=== PATIENT | male | born 1965 | race African-American/Black ===

== ENCOUNTER 2018-07-13 10:44 | Emergency (ER) | payer MEDICAID, OTHER ==
[~2018-07-13] VITALS: Ht 185.4 cm; Wt 113.4 kg
[2018-07-13 11:36] LABS: Basophils # (auto) 0 uL; Basophils % (auto) 0.6 % (0.0-2.0); Eosinophils # (auto) 0 uL; Eosinophils % (auto) 0.9 % (0.0-7.0); Hematocrit 42.9 % (41.0-53.0); Hemoglobin 14.4 g/dL (13.5-17.5); Lymphocytes # (auto) 1.1 uL; Lymphocytes % (auto) 20.2 % (10.0-50.0); Mean Corpuscular Hemoglobin 29.4 pg (28.0-32.0); Mean Corpuscular Hgb Conc. 33.6 g/dL (32.0-36.0); Mean Corpuscular Volume 87.6 fL (80.0-100.0); Monocytes # (auto) 0.5 uL; Monocytes % (auto) 10.2 % (0.0-12.0); Neutrophils # (auto) 3.5 uL; Neutrophils % (auto) 68.1 % (37.0-80.0); Nucleated Red Blood Cells % 0.1 %; Platelet Count (auto) 103 10^3/uL (140-450); Red Cell Distribution Width 14.4 % (11.8-14.3); White Blood Cell 5.2 10^3/uL (4.4-10.8)
[2018-07-13 11:59] LABS: Calcium 8.5 mg/dL (8.5-10.1); Chloride 102 mmol/L (98-107); Potassium 3.9 mmol/L (3.5-5.1); Sodium 135 mmol/L (136-145)
[2018-07-13] MEDS: SODIUM CHLORIDE 0.9% 1,000 ML IV ONE (12:07)
[2018-07-13 12:08] LABS: Alanine Aminotransferase 226 U/L (16-61); Alkaline Phosphatase 224 U/L (45-117); Anion Gap 10 (5-15); Aspartate Aminotransferase 225 U/L (15-37); BUN/Creatinine Ratio 2.9; Bilirubin, Total 2.3 mg/dL (0.2-1.0); Blood Urea Nitrogen 3 mg/dL (7-18); Carbon Dioxide 23 mmol/L (21-32); GFR African American 97 mL/min; GFR Non-African American 80 mL/min; Glucose 117 mg/dL (74-106)
[2018-07-13 12:08] LABS: Urine WBC None Seen /hpf (0 - 3)
[2018-07-13 12:28] LABS: Urine Bacteria NONE SEEN /hpf (None Seen); Urine Blood Negative /uL (Negative); Urine Specific Gravity 1.002 (1.001-1.035)
[2018-07-13 13:24] LABS: Alcohol, Urine < 3.0 mg/dL (0-5); Amphetamine Screen, Urine NEGATIVE (NEGATIVE); Barbiturate Scree,Urine NEGATIVE (NEGATIVE); Benzodiazephine Screen, Urine NEGATIVE (NEGATIVE); Cannabinoid Screen, Urine NEGATIVE (NEGATIVE); Cocaine Screen, Urine NEGATIVE (NEGATIVE); Opiate Scree,Urine NEGATIVE (NEGATIVE); Phencyclidine Screen, Urine NEGATIVE (NEGATIVE)
[2018-07-13 15:16] VITALS: BP 146/88
== END 2018-07-13 15:24 | disposition home or self-care (01) ==
LOC: ER 10:44
DX: I10 Essential (primary) hypertension (principal); M62.82 Rhabdomyolysis; E44.1 Mild protein-calorie malnutrition; R74.8 Abnormal levels of other serum enzymes; Z68.33 Body mass index [BMI] 33.0-33.9, adult
CPT/HCPCS: 36415; 71046; 80053; 80307; 81001; 82550; 83735; 84443; 84484; 85025; 93005; 99284; J7030

== ENCOUNTER 2019-04-20 08:22 | Inpatient (IN) | payer MEDICAID ==
[~2019-04-20] VITALS: Ht 185.4 cm; Wt 110.1 kg
[2019-04-20 08:58] LABS: Urine Bacteria NONE SEEN /hpf (None Seen); Urine Blood Negative /uL (Negative); Urine Mucus FEW (None Seen); Urine WBC 5 /hpf (0 - 3)
[2019-04-20 09:14] LABS: Amphetamine Screen, Urine NEGATIVE (NEGATIVE); Barbiturate Scree,Urine NEGATIVE (NEGATIVE); Benzodiazephine Screen, Urine NEGATIVE (NEGATIVE); Cannabinoid Screen, Urine NEGATIVE (NEGATIVE); Cocaine Screen, Urine NEGATIVE (NEGATIVE); Opiate Scree,Urine NEGATIVE (NEGATIVE); Phencyclidine Screen, Urine NEGATIVE (NEGATIVE)
[2019-04-20 09:16] LABS: Basophils # (auto) 0.1 uL; Eosinophils # (auto) 0 uL; Hemoglobin 17.5 g/dL (13.5-17.5); Nucleated Red Blood Cells % 0.2 %
[2019-04-20 09:17] LABS: Eosinophils % (auto) 0.5 % (0.0-7.0); Hematocrit 51.4 % (41.0-53.0); Lymphocytes # (auto) 2.2 uL; Lymphocytes % (auto) 25.6 % (10.0-50.0); Mean Corpuscular Hemoglobin 28.8 pg (28.0-32.0); Mean Corpuscular Volume 84.7 fL (80.0-100.0); Monocytes # (auto) 0.4 uL; Monocytes % (auto) 4.6 % (0.0-12.0); Neutrophils # (auto) 5.8 uL; Neutrophils % (auto) 68.3 % (37.0-80.0); Platelet Count (auto) 127 10^3/uL (140-450); Red Blood Cells 6.07 10^6/uL (4.5-5.90); Red Cell Distribution Width 14.5 % (11.8-14.3); White Blood Cell 8.5 10^3/uL (4.4-10.8)
[2019-04-20 09:27] LABS: Albumin 3.3 g/dL (3.4-5.0); BUN/Creatinine Ratio 9.3; Calcium 8.3 mg/dL (8.5-10.1)
[2019-04-20 09:33] LABS: Bilirubin, Total 3.9 mg/dL (0.2-1.0); Total Protein 7.5 g/dL (6.4-8.2)
[2019-04-20] MEDS ORDERED: SODIUM CHLORIDE 0.9% 1,000 ML IV ONE ×2 (09:39→09:45)
[2019-04-20] MEDS ORDERED: chlordiazePOXIDE HCL 25 MG CAP PO ONE (09:45)
[2019-04-20] MEDS ORDERED: cefTRIAXone 1GM/50ML D5W 50 ML IV ONE ×2 (10:30→10:45)
[2019-04-20] MEDS ORDERED: NITROGLYCERIN 0.4 MG SL TAB SL PRN (10:45)
[2019-04-20] MEDS ORDERED: THIAMINE 100mg/ml INJ (200mg/2ml VIAL) IV ONE (10:45)
[2019-04-20] MEDS ORDERED: MORPHINE SULF INJ 2 MG/ML SYRINGE 1ML IV PRN (10:45)
[2019-04-20] MEDS ORDERED: chlordiazePOXIDE HCL 25 MG CAP PO PRN (10:45)
[2019-04-20 11:10] LABS: Amylase 179 U/L (25-115); Lipase 351 U/L (73-393)
[2019-04-20] MEDS: PROMETHAZINE HCL 25 MG/ML 1ML IV PRN (11:13)
[2019-04-20] MEDS: FAMOTIDINE (10MG/ML) 2ML VL IV SCH ×2 (11:13→22:26)
[2019-04-20] MEDS: SODIUM CHLORIDE 0.9% 1,000 ML IV SCH ×2 (11:14→17:16)
[2019-04-20] MEDS: MORPHINE SULFATE 4 MG/ML SYR/VIAL IV PRN ×3 (11:14→22:28)
--- NOTE | 2019-04-20 11:45 | NUR ---
Telemetry admit from ER NIK CULLEN admitted to Telemetry unit after SBAR received. Patient oriented to SAMANTHA BUCIO RN primary RN, unit Central, room 223, bed B, and unit policies regarding patient care and visiting hours. Patient now on continuous telemetry monitoring, tele box # and telemetry reading on arrival to unit is sinus rhythm. Patient weighed by bedscale and encouraged to call if they need something. All questions and concerns addressed, patient verbalized understanding.
[2019-04-20] MEDS: chlordiazePOXIDE HCL 25 MG CAP PO SCH ×2 (12:00→17:54)
[2019-04-20] MEDS: metroNIDAZOLE 500MG/100ML 100 ML IV SCH ×2 (14:00→22:26)
[2019-04-20 15:50] VITALS: BP 148/85
[2019-04-20 16:25] VITALS: BP 136/88
--- NOTE | 2019-04-20 20:10 | NUR ---
open note assumed care of pt. upon entering room pt awake, alert and oriented x4. pt on room air no distress noted or expressed. pt updated on plan of care, no questions at this time. pt bed locked, low and 2x rails up. call light in reach, this nurse will round q1hr and prn.
[2019-04-20 22:02] VITALS: BP 157/88
[2019-04-21] MEDS: SODIUM CHLORIDE 0.9% 1,000 ML IV SCH ×3 (00:02→12:00)
[2019-04-21] MEDS: MORPHINE SULFATE 4 MG/ML SYR/VIAL IV PRN ×4 (03:30→21:00)
[2019-04-21 04:46] VITALS: BP 165/93
[2019-04-21] MEDS: metroNIDAZOLE 500MG/100ML 100 ML IV SCH (06:17)
[2019-04-21] MEDS: chlordiazePOXIDE HCL 25 MG CAP PO SCH ×4 (06:18→18:22)
[2019-04-21 06:23] LABS: Basophils # (auto) 0 uL; Basophils % (auto) 0.6 % (0.0-2.0); Eosinophils # (auto) 0 uL; Eosinophils % (auto) 0.9 % (0.0-7.0); Hematocrit 41.9 % (41.0-53.0); Hemoglobin 14.6 g/dL (13.5-17.5); Lymphocytes # (auto) 1.1 uL; Lymphocytes % (auto) 20.5 % (10.0-50.0); Mean Corpuscular Hemoglobin 29.3 pg (28.0-32.0); Mean Corpuscular Hgb Conc. 34.7 g/dL (32.0-36.0); Mean Corpuscular Volume 84.6 fL (80.0-100.0); Monocytes # (auto) 0.4 uL; Monocytes % (auto) 7.4 % (0.0-12.0); Neutrophils # (auto) 3.7 uL; Neutrophils % (auto) 70.6 % (37.0-80.0); Nucleated Red Blood Cells % 0.1 %; Platelet Count (auto) 74 10^3/uL (140-450); Red Blood Cells 4.96 10^6/uL (4.5-5.90); Red Cell Distribution Width 14.3 % (11.8-14.3); White Blood Cell 5.2 10^3/uL (4.4-10.8)
[2019-04-21 06:47] LABS: Potassium 4.1 mmol/L (3.5-5.1)
[2019-04-21 06:52] LABS: Amylase 146 U/L (25-115); Lipase 232 U/L (73-393)
[2019-04-21 06:57] LABS: Albumin 2.6 g/dL (3.4-5.0); BUN/Creatinine Ratio 7.8; Bilirubin, Total 3.5 mg/dL (0.2-1.0); Calcium 7.4 mg/dL (8.5-10.1)
--- NOTE | 2019-04-21 08:03 | NUR ---
Paged Dr Poole regarding a blood pressure of 173/102. Waiting for orders.
--- NOTE | 2019-04-21 08:20 | NUR ---
Opening Shift Note Received report on the patient. Awake lying in bed. Discussed plan of care with the patient. Patient shows no signs of distress at this time. Bed in lowest position, side rails up x2, and call light is within reach. Will continue to monitor.
[2019-04-21 09:00] VITALS: BP 173/102
[2019-04-21] MEDS ORDERED: cefTRIAXone 1GM/50ML D5W 50 ML IV SCH (09:00)
[2019-04-21] MEDS: PROMETHAZINE HCL 25 MG/ML 1ML IV PRN (09:29)
[2019-04-21] MEDS ORDERED: THIAMINE 100mg/ml INJ (200mg/2ml VIAL) IV SCH (10:00)
[2019-04-21] MEDS: FAMOTIDINE (10MG/ML) 2ML VL IV SCH ×2 (10:27→21:35)
[2019-04-21] MEDS ORDERED: METOPROLOL TARTRATE 25 MG TAB PO ONE (12:00)
[2019-04-21] MEDS ORDERED: cloNIDine HCL 0.1 MG TAB PO PRN (12:15)
[2019-04-21] MEDS: FOLIC ACID 1 MG, MULTIPLE VITAMIN 10 ML, MAGNESIUM SULF SDV 50% 8 MEQ, THIAMINE INJ 100... INJ SCH ×5 (15:47)
--- NOTE | 2019-04-21 16:30 | NUR ---
IV removal IV DC'd with clean sterile technique, catheter fully intact. Pressure dressing applied to site. Patient tolerated well. NOTE:
--- NOTE | 2019-04-21 17:09 | NUR ---
IV insertion IV access obtained, via clean sterile technique by inserting 22 gauge catheter at the right forearm after 2 attempt(s). IV secured properly. No trauma to site. Patient tolerated well. NOTE: []
[2019-04-21 17:20] VITALS: BP 155/86
[2019-04-21] MEDS: METOPROLOL TARTRATE 25 MG TAB PO SCH (21:30)
[2019-04-21 21:44] VITALS: BP 156/87
[2019-04-21 22:15] LABS: Hepatitis B Surface Antigen Negative (Negative)
[2019-04-21 22:27] LABS: Hepatitis C Antibody Negative (Negative)
[2019-04-21 22:32] LABS: Hepatitis B Core IgM Negative
[2019-04-21 22:33] LABS: Hepatitis A Ab IgM Negative
[2019-04-22] MEDS: chlordiazePOXIDE HCL 25 MG CAP PO SCH ×3 (00:29→12:00)
[2019-04-22] MEDS: SODIUM CHLORIDE 0.9% 1,000 ML IV SCH (01:20)
[2019-04-22 05:14] VITALS: BP 151/93
[2019-04-22 07:41] LABS: Basophils # (auto) 0 uL; Basophils % (auto) 0.8 % (0.0-2.0); Eosinophils # (auto) 0.2 uL; Eosinophils % (auto) 4.7 % (0.0-7.0); Hematocrit 41.4 % (41.0-53.0); Hemoglobin 14.3 g/dL (13.5-17.5); Lymphocytes # (auto) 1.4 uL; Lymphocytes % (auto) 33.2 % (10.0-50.0); Mean Corpuscular Hemoglobin 29.4 pg (28.0-32.0); Mean Corpuscular Hgb Conc. 34.5 g/dL (32.0-36.0); Mean Corpuscular Volume 85.2 fL (80.0-100.0); Monocytes # (auto) 0.4 uL; Monocytes % (auto) 9.1 % (0.0-12.0); Neutrophils # (auto) 2.2 uL; Neutrophils % (auto) 52.2 % (37.0-80.0); Nucleated Red Blood Cells % 0.2 %; Platelet Count (auto) 68 10^3/uL (140-450); Red Blood Cells 4.86 10^6/uL (4.5-5.90); Red Cell Distribution Width 14.3 % (11.8-14.3); White Blood Cell 4.3 10^3/uL (4.4-10.8)
[2019-04-22 07:55] LABS: Albumin 2.5 g/dL (3.4-5.0); BUN/Creatinine Ratio 6.1; Calcium 7.9 mg/dL (8.5-10.1); Potassium 3.8 mmol/L (3.5-5.1)
[2019-04-22 07:58] LABS: Bilirubin, Total 3.3 mg/dL (0.2-1.0); Total Protein 5.8 g/dL (6.4-8.2)
--- NOTE | 2019-04-22 08:15 | NUR ---
Patient in the room walking, no IV access. Patient stated he removed his IV line earlier. No bleeding noted on the previous IV site. Patient refused to have a new IV insertion. Patient waiting for the doctor to see him.
[2019-04-22 09:16] VITALS: BP 168/85
[2019-04-22] MEDS: FAMOTIDINE (10MG/ML) 2ML VL IV SCH (09:44)
[2019-04-22] MEDS: METOPROLOL TARTRATE 25 MG TAB PO SCH (09:49)
--- NOTE | 2019-04-22 10:58 | NUR ---
Jacques Swanson at bedside. to discharge the patient today. Addendum: 04/22/19 at 1214 by Lashawn Mancini RN WRONG ENTRY
--- NOTE | 2019-04-22 10:58 | NUR ---
Dr. Marie at [facility]. explained to patient the risks of drinking too much alcohol. Dr. Marie to discharge the patient today, will write prescription.
[2019-04-22] MEDS ORDERED: MORPHINE SULF INJ 2 MG/ML SYRINGE 1ML IV PRN (11:15)
[2019-04-22] MEDS: FOLIC ACID 1 MG, MULTIPLE VITAMIN 10 ML, MAGNESIUM SULF SDV 50% 8 MEQ, THIAMINE INJ 100... INJ SCH ×5 (11:48)
--- NOTE | 2019-04-22 12:05 | NUR ---
Discharge instructions given as ordered. Encourage to follow up with PMD as instructed. All questions and concerns addressed. Patient verbalized understanding. Medication reconciliation form completed and copy given to patient. IV removed with catheter intact, pressure dressing applied. Patient is ambulatory, steady gait noted, refused to be taken to vehicle via wheelchair, patient with all personal belongings. No distress noted at time of departure.
[2019-04-22 12:16] VITALS: BP 118/61
== END 2019-04-22 12:05 | disposition home or self-care (01) | DRG 241 ==
LOC: ER 08:22 → TELE-CENTR 08:23 → CENTRAL 04-22 00:04
PROVIDERS: ADMIT Internal Medicine; ATTEND Internal Medicine
DX: K29.70 Gastritis, unspecified, without bleeding (principal); D69.6 Thrombocytopenia, unspecified; K70.9 Alcoholic liver disease, unspecified; E66.9 Obesity, unspecified; E86.0 Dehydration; F10.10 Alcohol abuse, uncomplicated; I10 Essential (primary) hypertension; Y90.6 Blood alcohol level of 120-199 mg/100 ml; F10.129 Alcohol abuse with intoxication, unspecified; K82.8 Other specified diseases of gallbladder; Z82.49 Family history of ischemic heart disease and other diseases of the circulatory system; Z68.32 Body mass index [BMI] 32.0-32.9, adult; Z79.899 Other long term (current) drug therapy
CPT/HCPCS: 36415; 74176; 76705; 78226; 80053; 80074; 80307; 80320; 81001; 82150; 83605; 83690; 85025; 87040; 87086; 93005; G0378; J0696; J3490

== ENCOUNTER 2020-08-20 08:24 | Inpatient (IN) | payer MEDICAID ==
[~2020-08-20] VITALS: Ht 185.4 cm; Wt 113.7 kg
[2020-08-20] MEDS ORDERED: LORazepam 2MG/ML-1ML VIAL IV ONE (08:45)
[2020-08-20] MEDS ORDERED: THIAMINE 100mg/ml INJ (200mg/2ml VIAL) IV ONE (08:45)
[2020-08-20] MEDS ORDERED: SODIUM CHLORIDE 0.9% 1,000 ML IV ONE ×2 (08:45)
[2020-08-20 09:00] LABS: Basophils # (auto) 0.1 10 ^3/uL (0-0.2); Basophils % (auto) 0.9 % (0.0-2.0); Eosinophils # (auto) 0.1 10 ^3/uL (0-0.8); Eosinophils % (auto) 0.9 % (0.0-7.0); Hemoglobin 14.8 g/dL (13.5-17.5); Lymphocytes # (auto) 1.2 10 ^3/uL (0.4-5.4); Mean Corpuscular Hemoglobin 31.1 pg (28.0-32.0); Mean Corpuscular Hgb Conc. 33.6 g/dL (32.0-36.0); Mean Corpuscular Volume 92.6 fL (80.0-100.0); Monocytes # (auto) 0.9 10 ^3/uL (0-1.3); Monocytes % (auto) 11.4 % (0.0-12.0); Neutrophils # (auto) 5.8 10 ^3/uL (1.6-8.6); Neutrophils % (auto) 71.8 % (37.0-80.0); Nucleated Red Blood Cells % 0.1 %; Red Blood Cells 4.75 10^6/uL (4.5-5.90); Red Cell Distribution Width 17.4 % (11.8-14.3); White Blood Cell 8.1 10^3/uL (4.4-10.8)
[2020-08-20] MEDS ORDERED: LABETALOL HCL 5 MG/ML 4ML SYRINGE IV ONE (09:00)
[2020-08-20 09:15] LABS: INR 1.21 (0.9-1.15); Partial Thromboplastin Time 28.4 sec (23.0-31.2)
[2020-08-20 09:17] LABS: Albumin 3.3 g/dL (3.4-5.0); Anion Gap 9 (5-15); Blood Urea Nitrogen 10 mg/dL (7-18); Calcium 8.3 mg/dL (8.5-10.1); Carbon Dioxide 24 mmol/L (21-32); Chloride 103 mmol/L (98-107); Glucose 128 mg/dL (74-106); Potassium 3.5 mmol/L (3.5-5.1); Sodium 136 mmol/L (136-145)
[2020-08-20 09:22] LABS: Alanine Aminotransferase 68 U/L (16-61); Alkaline Phosphatase 239 U/L (45-117); Aspartate Aminotransferase 265 U/L (15-37); BUN/Creatinine Ratio 11.1; Bilirubin, Total 3.4 mg/dL (0.2-1.0); GFR African American 112 mL/min; GFR Non-African American 93 mL/min; Total Protein 8.1 g/dL (6.4-8.2)
[2020-08-20 09:52] LABS: Urine Bacteria NONE SEEN /hpf (None Seen); Urine Blood TRACE /uL (Negative); Urine Mucus FEW (None Seen); Urine Specific Gravity 1.012 (1.001-1.035); Urine WBC 1 /hpf (0 - 3)
[2020-08-20] MEDS ORDERED: MORPHINE SULF INJ 2 MG/ML SYRINGE 1ML IV PRN ×2 (12:30)
[2020-08-20] MEDS ORDERED: ONDANSETRON ODT 4 MG TAB PO PRN (12:30)
[2020-08-20] MEDS ORDERED: NITROGLYCERIN 0.4 MG SL TAB SL PRN (12:30)
[2020-08-20] MEDS ORDERED: FOLIC ACID 1 MG, MULTIPLE VITAMIN 10 ML, MAGNESIUM SULF SDV 50% 8 MEQ, THIAMINE INJ 100... INJ ONE ×5 (12:45)
[2020-08-20 13:12] LABS: Folate (Folic Acid) 9.71 ng/mL (5.38-24)
[2020-08-20] MEDS: PROPRANOLOL HCL 20 MG TAB PO SCH ×2 (14:30→21:55)
[2020-08-20] MEDS ORDERED: LOSA-69 PO (16:33)
[2020-08-20] MEDS ORDERED: hydrALAZINE HCL 20 MG/ML VL IV PRN (16:45)
[2020-08-20 17:00] VITALS: BP 157/96
[2020-08-20] MEDS: chlordiazePOXIDE HCL 25 MG CAP PO SCH ×2 (18:07→23:12)
[2020-08-20] MEDS: PANTOPRAZOLE 40 MG/10 ML VIAL INJ IV SCH (21:54)
[2020-08-20] MEDS: SUCRALFATE 1 GM/10 ML ORAL SUSP PO SCH (21:55)
[2020-08-20 22:00] VITALS: BP 143/79
[2020-08-20] MEDS ORDERED: PANTOPRAZOLE 40 MG TAB PO SCH (22:00)
[2020-08-20] MEDS ORDERED: TEMAZEPAM 15 MG CAP PO ONE (23:15)
[2020-08-21 05:00] VITALS: BP 151/89
[2020-08-21] MEDS: SUCRALFATE 1 GM/10 ML ORAL SUSP PO SCH ×4 (05:23→21:58)
[2020-08-21] MEDS: chlordiazePOXIDE HCL 25 MG CAP PO SCH ×4 (05:23→23:49)
[2020-08-21] MEDS: PROPRANOLOL HCL 20 MG TAB PO SCH ×3 (05:23→21:58)
[2020-08-21 06:39] LABS: Basophils # (auto) 0.1 10 ^3/uL (0-0.2); Basophils % (auto) 1.1 % (0.0-2.0); Eosinophils # (auto) 0.2 10 ^3/uL (0-0.8); Eosinophils % (auto) 2.8 % (0.0-7.0); Hematocrit 39.3 % (41.0-53.0); Hemoglobin 13.8 g/dL (13.5-17.5); Lymphocytes # (auto) 1.1 10 ^3/uL (0.4-5.4); Lymphocytes % (auto) 16.3 % (10.0-50.0); Mean Corpuscular Hemoglobin 33.3 pg (28.0-32.0); Mean Corpuscular Hgb Conc. 35.2 g/dL (32.0-36.0); Mean Corpuscular Volume 94.5 fL (80.0-100.0); Monocytes # (auto) 0.8 10 ^3/uL (0-1.3); Monocytes % (auto) 12.2 % (0.0-12.0); Neutrophils # (auto) 4.5 10 ^3/uL (1.6-8.6); Neutrophils % (auto) 67.6 % (37.0-80.0); Nucleated Red Blood Cells % 0.4 %; Red Blood Cells 4.16 10^6/uL (4.5-5.90); Red Cell Distribution Width 17.4 % (11.8-14.3); White Blood Cell 6.7 10^3/uL (4.4-10.8)
[2020-08-21 06:56] LABS: Albumin 2.8 g/dL (3.4-5.0); Calcium 7.8 mg/dL (8.5-10.1); Potassium 3.9 mmol/L (3.5-5.1)
[2020-08-21 07:02] LABS: BUN/Creatinine Ratio 16.9; Bilirubin, Total 5.2 mg/dL (0.2-1.0); Total Protein 6.8 g/dL (6.4-8.2)
[2020-08-21] MEDS ORDERED: MIDAZOLAM HCL 5 MG/ML-1ML VIAL ONE (08:12)
[2020-08-21] MEDS ORDERED: LIDOCAINE VISCOUS 2% 15ML UD ONE (08:12)
[2020-08-21] MEDS ORDERED: SODIUM CHLORIDE LOCK 10 ML ONE (08:12)
[2020-08-21] MEDS ORDERED: fentaNYL CITRATE 100 MCG/2 ML VL ONE ×2 (08:12→14:41)
[2020-08-21] MEDS ORDERED: diphenhdrAMINE HCL 50 MG/1 ML VL ONE (08:12)
[2020-08-21 08:57] VITALS: BP 170/99
[2020-08-21] MEDS: PANTOPRAZOLE 40 MG/10 ML VIAL INJ IV SCH ×2 (09:15→21:58)
[2020-08-21] MEDS: LORazepam 2MG/ML-1ML VIAL IV PRN ×2 (12:14→22:36)
[2020-08-21 12:39] VITALS: BP 171/92
[2020-08-21] MEDS: FOLIC ACID 1 MG, MULTIPLE VITAMIN 10 ML, MAGNESIUM SULF SDV 50% 8 MEQ, THIAMINE INJ 100... INJ SCH ×5 (13:08)
[2020-08-21 14:06] VITALS: BP 156/95
[2020-08-21] MEDS ORDERED: MIDAZOLAM HCL 1MG/1ML-2 ML VIAL ONE (14:41)
[2020-08-21] MEDS ORDERED: LIDOCAINE 2% (LOCAL ANESTH.) PF 5ml SDV ONE (14:46)
[2020-08-21] MEDS ORDERED: ONDANSETRON HCL 4 MG/2 ML VIAL ONE (14:47)
[2020-08-21] MEDS ORDERED: PROPOFOL 10 MG/ML 20 ML IV ONE (14:47)
[2020-08-21] MEDS ORDERED: ONDANSETRON HCL 4 MG/2 ML VIAL IV PRN (15:15)
[2020-08-21 17:00] VITALS: BP 147/91
[2020-08-21 22:00] VITALS: BP 130/72
[2020-08-21] MEDS ORDERED: TEMAZEPAM 15 MG CAP PO PRN (23:00)
[2020-08-22 05:00] VITALS: BP 146/79
[2020-08-22] MEDS: chlordiazePOXIDE HCL 25 MG CAP PO SCH ×4 (05:46→23:54)
[2020-08-22] MEDS: PROPRANOLOL HCL 20 MG TAB PO SCH ×3 (05:47→21:49)
[2020-08-22] MEDS: SUCRALFATE 1 GM/10 ML ORAL SUSP PO SCH ×4 (06:33→21:49)
[2020-08-22 08:00] VITALS: BP 151/94
[2020-08-22 08:25] VITALS: BP 151/94
[2020-08-22] MEDS: PANTOPRAZOLE 40 MG/10 ML VIAL INJ IV SCH ×2 (10:03→21:48)
[2020-08-22 12:39] VITALS: BP 147/79
[2020-08-22] MEDS: FOLIC ACID 1 MG, MULTIPLE VITAMIN 10 ML, MAGNESIUM SULF SDV 50% 8 MEQ, THIAMINE INJ 100... INJ SCH ×5 (13:02)
[2020-08-22 17:13] VITALS: BP 130/75
[2020-08-22 22:00] VITALS: BP 144/74
[2020-08-23 05:00] VITALS: BP 147/87
[2020-08-23] MEDS: chlordiazePOXIDE HCL 25 MG CAP PO SCH ×2 (06:05→11:37)
[2020-08-23] MEDS: SUCRALFATE 1 GM/10 ML ORAL SUSP PO SCH ×2 (06:06→11:37)
[2020-08-23] MEDS: PROPRANOLOL HCL 20 MG TAB PO SCH ×2 (06:06→14:00)
[2020-08-23 07:30] VITALS: BP 151/94
[2020-08-23 08:48] VITALS: BP 138/81
[2020-08-23] MEDS: PANTOPRAZOLE 40 MG/10 ML VIAL INJ IV SCH (11:36)
[2020-08-23] MEDS ORDERED: FOLIC ACID 1 MG, MULTIPLE VITAMIN 10 ML, THIAMINE INJ 100 MG in D5W/SOD CHL 0.45% 1,000 ML INJ SCH (12:00)
[2020-08-23] MEDS ORDERED: LOSA-69 PO (12:01)
[2020-08-23] MEDS ORDERED: HYDR12.56 PO (12:02)
[2020-08-23] MEDS ORDERED: SERT50TA19 PO (12:02)
[2020-08-23] MEDS ORDERED: SUCR1TAB22 OR (12:03)
[2020-08-23] MEDS ORDERED: PANT40TA2 PO (12:04)
[2020-08-23] MEDS ORDERED: AML5T PO (12:05)
[2020-08-23 13:00] VITALS: BP 136/70
[2020-08-23 13:40] VITALS: BP 136/70
== END 2020-08-23 16:52 | disposition home or self-care (01) | DRG 241 ==
LOC: ER 08:24 → TELE 12:25 → TELE-EAST 15:47
PROVIDERS: ADMIT Nurse Practitioner Acute Care; ATTEND Internal Medicine Nephrology
PROC: 0DB68ZX Excision of Stomach, Via Natural or Artificial Opening Endoscopic, Diagnostic (ICD-10-PCS; 2020-08-21)
PROC: 0DB98ZX Excision of Duodenum, Via Natural or Artificial Opening Endoscopic, Diagnostic (ICD-10-PCS; principal; 2020-08-21 14:45)
DX: K29.61 Other gastritis with bleeding (principal); D69.6 Thrombocytopenia, unspecified; K70.9 Alcoholic liver disease, unspecified; F33.1 Major depressive disorder, recurrent, moderate; I16.1 Hypertensive emergency; F10.139 Alcohol abuse with withdrawal, unspecified; K29.81 Duodenitis with bleeding; I10 Essential (primary) hypertension; M10.9 Gout, unspecified; E66.9 Obesity, unspecified; R74.8 Abnormal levels of other serum enzymes; K44.9 Diaphragmatic hernia without obstruction or gangrene; K75.81 Nonalcoholic steatohepatitis (NASH); Z20.822 Contact with and (suspected) exposure to COVID-19; K31.9 Disease of stomach and duodenum, unspecified; Z68.33 Body mass index [BMI] 33.0-33.9, adult; Y90.3 Blood alcohol level of 60-79 mg/100 ml
CPT/HCPCS: 36415; 70450; 71045; 74176; 80053; 80320; 81001; 82270; 82550; 82607; 82746; 83880; 84484; 84550; 85025; 85610; 85730; 86850; 86900; 86901; 87426; 93005; 96361; 96374; 96375; C9113; G0378; J2001; J2250; J2405; J2704; J3490

== ENCOUNTER 2020-12-24 13:47 | Emergency (ER) | payer MEDICAID ==
[~2020-12-24] VITALS: Ht 182.9 cm; Wt 90.7 kg
[~2020-12-24 13:47] MED LIST: LOSA-69 PO; PANT40TA2 PO; SUCR1TAB22 OR
[2020-12-24] MEDS ORDERED: ONDANSETRON HCL 4 MG/2 ML VIAL IV ONE (14:30)
[2020-12-24 15:50] LABS: Eosinophils # (auto) 0 10 ^3/uL (0-0.8); Mean Corpuscular Volume 93.6 fL (80.0-100.0); Monocytes # (auto) 0.4 10 ^3/uL (0-1.3); Neutrophils # (auto) 3.7 10 ^3/uL (1.6-8.6); Nucleated Red Blood Cells % 0.1 %; Red Cell Distribution Width 19.3 % (11.8-14.3)
[2020-12-24 15:52] LABS: Basophils # (auto) 0 10 ^3/uL (0-0.2); Basophils % (auto) 0.9 % (0.0-2.0); Eosinophils % (auto) 0.2 % (0.0-7.0); Hemoglobin 12.2 g/dL (13.5-17.5); Lymphocytes # (auto) 0.7 10 ^3/uL (0.4-5.4); Lymphocytes % (auto) 13.7 % (10.0-50.0); Mean Corpuscular Hgb Conc. 33.1 g/dL (32.0-36.0); Monocytes % (auto) 8.5 % (0.0-12.0); Neutrophils % (auto) 76.7 % (37.0-80.0); Red Blood Cells 3.95 10^6/uL (4.5-5.90); White Blood Cell 4.8 10^3/uL (4.4-10.8)
[2020-12-24 15:57] LABS: Calcium 7.8 mg/dL (8.5-10.1); Potassium 3.8 mmol/L (3.5-5.1)
[2020-12-24 16:01] LABS: Albumin 2.8 g/dL (3.4-5.0); BUN/Creatinine Ratio 17.4
[2020-12-24 16:03] LABS: Acetaminophen < 2.0 ug/mL (10-30); Salicylate < 1.7 mg/dL (2.8-20.0)
[2020-12-24 16:05] LABS: Bilirubin, Total 4.6 mg/dL (0.2-1.0); Total Protein 7.6 g/dL (6.4-8.2)
[2020-12-24] MEDS ORDERED: LORazepam 2MG/ML-1ML VIAL IV ONE (20:45)
[2020-12-24] MEDS ORDERED: chlordiazePOXIDE HCL 25 MG CAP PO ONE (23:00)
[2020-12-25] MEDS ORDERED: chlordiazePOXIDE HCL 25 MG CAP PO ONE ×2 (03:30→11:15)
[2020-12-25 10:35] LABS: Urine Bacteria NONE SEEN /hpf (None Seen); Urine Blood Negative /uL (Negative); Urine Mucus FEW (None Seen); Urine Specific Gravity 1.023 (1.001-1.035); Urine WBC 12 /hpf (0 - 3)
[2020-12-25 11:12] LABS: Amphetamine Screen, Urine NEGATIVE (NEGATIVE); Barbiturate Scree,Urine NEGATIVE (NEGATIVE); Benzodiazephine Screen, Urine POSITIVE (NEGATIVE); Cannabinoid Screen, Urine POSITIVE (NEGATIVE); Cocaine Screen, Urine NEGATIVE (NEGATIVE); Opiate Scree,Urine NEGATIVE (NEGATIVE); Phencyclidine Screen, Urine NEGATIVE (NEGATIVE)
[2020-12-25] MEDS ORDERED: ONDANSETRON HCL 4 MG/2 ML VIAL IV ONE (16:00)
[2020-12-25] MEDS ORDERED: LORazepam 0.5 MG TAB PO ONE (23:45)
[2020-12-26 19:33] VITALS: BP 163/91
== END 2020-12-26 19:56 | disposition short-term general hospital (02) ==
LOC: ER 13:47 → EDBD 13:47 → ER 12-26 19:56
DX: F10.139 Alcohol abuse with withdrawal, unspecified (principal); R45.851 Suicidal ideations; I10 Essential (primary) hypertension; M10.9 Gout, unspecified; Z79.899 Other long term (current) drug therapy; Z20.822 Contact with and (suspected) exposure to COVID-19; Y90.5 Blood alcohol level of 100-119 mg/100 ml
CPT/HCPCS: 36415; 80053; 80307; 80320; 80329; 81001; 85025; 87426; 93005; 96374; 99285; J2405; J7030

== ENCOUNTER 2021-02-14 19:15 | Inpatient (IN) | payer MEDICAID ==
[~2021-02-14] VITALS: Ht 177.8 cm; Wt 91.9 kg
[2021-02-14] MEDS ORDERED: ETOMIDATE (2MG/ML) 20ML VIAL IV ONE ×2 (19:30→23:00)
[2021-02-14] MEDS ORDERED: SUCCINYLCHOLINE CHLORIDE 20 MG/ML 10ML VIAL IV ONE ×2 (19:30→23:00)
[2021-02-14] MEDS ORDERED: MIDAZOLAM DRIP 50 mg/50mL 50 ML IV ONE ×2 (19:47→21:37)
[2021-02-14 20:08] VITALS: BP 119/71
[2021-02-14 21:08] LABS: Basophils # (auto) 0 10 ^3/uL (0-0.2); Hemoglobin 9.5 g/dL (13.5-17.5); Monocytes # (auto) 0.9 10 ^3/uL (0-1.3); Monocytes % (auto) 7.5 % (0.0-12.0); Red Cell Distribution Width 19.2 % (11.8-14.3)
[2021-02-14 21:10] LABS: Basophils % (auto) 0.2 % (0.0-2.0); Eosinophils # (auto) 0 10 ^3/uL (0-0.8); Eosinophils % (auto) 0.2 % (0.0-7.0); Hematocrit 31.2 % (41.0-53.0); Lymphocytes # (auto) 0.9 10 ^3/uL (0.4-5.4); Lymphocytes % (auto) 7.4 % (10.0-50.0); Mean Corpuscular Hemoglobin 32.1 pg (28.0-32.0); Mean Corpuscular Hgb Conc. 30.5 g/dL (32.0-36.0); Mean Corpuscular Volume 105.4 fL (80.0-100.0); Neutrophils # (auto) 10.7 10 ^3/uL (1.6-8.6); Neutrophils % (auto) 84.7 % (37.0-80.0); Nucleated Red Blood Cells % 0.8 %; Red Blood Cells 2.96 10^6/uL (4.5-5.90); White Blood Cell 12.6 10^3/uL (4.4-10.8)
[2021-02-14 21:21] LABS: Albumin 1.8 g/dL (3.4-5.0); BUN/Creatinine Ratio 7.9; Calcium 7.7 mg/dL (8.5-10.1); Potassium 3.5 mmol/L (3.5-5.1)
[2021-02-14 21:24] LABS: Bilirubin, Total 10.2 mg/dL (0.2-1.0); Total Protein 7.2 g/dL (6.4-8.2)
[2021-02-14 21:35] LABS: Lactic Acid w/Reflex 21.2 mmol/L (0.4-2.0)
[2021-02-14 21:51] VITALS: BP 85/53
[2021-02-14 21:52] LABS: INR 1.88 (0.9-1.15)
[2021-02-14] MEDS ORDERED: THIAMINE 100mg/ml INJ (200mg/2ml VIAL) IV ONE (22:30)
[2021-02-14] MEDS ORDERED: FOLIC ACID 1 MG in D5W 5% 50 ML INJ ONE (22:30)
[2021-02-14] MEDS: NOREPINEPHRINE 8 MG/250ML KIT 250 ML IV SCH (23:34)
[2021-02-14] MEDS: fentaNYL Drip 2500mCg/250mlNS 250 ML IV SCH (23:38)
[2021-02-14] MEDS: MIDAZOLAM DRIP 50 mg/50mL 50 ML IV SCH (23:40)
[2021-02-15] VITALS (25 sets, daily range): BP systolic 82–107; BP diastolic 43–63
[2021-02-15] MEDS ORDERED: D5W/SOD CHL 0.45% 1,000 ML IV SCH (01:30)
[2021-02-15] MEDS ORDERED: NITROGLYCERIN 0.4 MG SL TAB SL PRN (01:30)
[2021-02-15] MEDS ORDERED: MORPHINE SULFATE INJECTION 2 MG/ML SYRG IV PRN (01:30)
[2021-02-15] MEDS ORDERED: ACETAMINOPHEN 650 MG RECT SUPP PR PRN (01:30)
[2021-02-15] MEDS ORDERED: VANCOMYCIN PER PHARMACY 0 MG IV SCH (01:30)
[2021-02-15] MEDS ORDERED: ONDANSETRON HCL 4 MG/2 ML VIAL IV PRN (01:30)
[2021-02-15] MEDS ORDERED: VANCOMYCIN 1GM/250ML 250 ML IV ONE (02:00)
[2021-02-15] MEDS: ALBUMIN 25% 50 ML IV SCH ×3 (02:20→17:46)
[2021-02-15] MEDS: LACTULOSE 10g/15ml SOLN PR SCH ×3 (06:00→18:00)
[2021-02-15 06:19] LABS: Hemoglobin 8.6 g/dL (13.5-17.5)
[2021-02-15 06:20] LABS: Hematocrit 26.9 % (41.0-53.0); Mean Corpuscular Hemoglobin 32.6 pg (28.0-32.0); Mean Corpuscular Hgb Conc. 32.1 g/dL (32.0-36.0); Mean Corpuscular Volume 101.6 fL (80.0-100.0); Red Blood Cells 2.64 10^6/uL (4.5-5.90); Red Cell Distribution Width 19.4 % (11.8-14.3); White Blood Cell 6.1 10^3/uL (4.4-10.8)
[2021-02-15 06:25] LABS: Basophils % (manual) 0 (0.0-2.0); Blast Cells 0; Eosinophils % (manual) 0 (0-7); Promyelocytes % 0; Reactive Lymphocytes 0
[2021-02-15] MEDS ORDERED: LACTULOSE 20Gm/30ML SOLN PO ONE (06:30)
[2021-02-15 06:36] LABS: Albumin 1.6 g/dL (3.4-5.0); BUN/Creatinine Ratio 9.7; Calcium 6.9 mg/dL (8.5-10.1)
[2021-02-15 06:39] LABS: Bilirubin, Total 10.4 mg/dL (0.2-1.0); Total Protein 5.7 g/dL (6.4-8.2)
[2021-02-15 07:02] LABS: Lactic Acid w/Reflex 16.3 mmol/L (0.4-2.0)
[2021-02-15 08:12] LABS: Band Neutrophils % (manual) 20; Lymphocytes % (manual) 20 (10.0-50.0); Metamyelocytes % 5; Monocytes % (manual) 5 (0-12); Myelocytes % 4
[2021-02-15] MEDS: cefTRIAXone 1GM/50ML D5W 50 ML IV SCH (08:29)
[2021-02-15] MEDS: FOLIC ACID 1 MG in D5W 5% 50 ML INJ SCH (09:41)
[2021-02-15] MEDS: THIAMINE 100mg/ml INJ (200mg/2ml VIAL) IV SCH (09:49)
[2021-02-15] MEDS ORDERED: SODIUM BICARBONATE 8.4 % INJ 50ML VIAL IV ONE ×3 (11:00→17:45)
[2021-02-15] MEDS: PHENYLEPHRINE IV 250 ML IV SCH ×2 (11:28→19:32)
[2021-02-15] MEDS ORDERED: SODIUM BICARBONATE 50ML VIAL 50 ML in SOD CHL 0.45% 1,000 ML IV ONE (11:30)
[2021-02-15] MEDS ORDERED: OCTREOTIDE ACETATE 100 MCG in SODIUM CHL 0.9% 50 ML IV ONE (11:30)
[2021-02-15] MEDS: VASOPRESSIN 50 UNITS in D5W 5% 247.5 ML IV SCH (12:37)
[2021-02-15] MEDS: OCTREOTIDE ACETATE 500 MCG in SODIUM CHL 0.9% 99 ML IV SCH ×2 (12:46→22:02)
[2021-02-15] MEDS: CLINDAMYCIN 300MG IV 50 ML IV SCH ×2 (14:34→22:45)
[2021-02-15 18:05] LABS: Hematocrit 26.2 % (41.0-53.0); Hemoglobin 8.3 g/dL (13.5-17.5)
[2021-02-15] MEDS ORDERED: OCTREOTIDE ACETATE 500 MCG/ML VL ONE (21:34)
[2021-02-15] MEDS: NOREPINEPHRINE 8 MG/250ML KIT 250 ML IV SCH (22:03)
[2021-02-15] MEDS: PANTOPRAZOLE 40 MG/10 ML VIAL INJ IV SCH (22:45)
[2021-02-16] VITALS (54 sets, daily range): BP systolic 61–125; BP diastolic 32–98
[2021-02-16] MEDS: fentaNYL Drip 2500mCg/250mlNS 250 ML IV SCH (01:05)
[2021-02-16] MEDS: PHENYLEPHRINE IV 250 ML IV SCH ×3 (01:06→04:37)
[2021-02-16] MEDS: MIDAZOLAM DRIP 50 mg/50mL 50 ML IV SCH ×2 (01:06→02:03)
[2021-02-16] MEDS ORDERED: VASOPRESSIN 20 UNIT/ML ONE (04:17)
[2021-02-16] MEDS: VASOPRESSIN 50 UNITS in D5W 5% 247.5 ML IV SCH (04:35)
[2021-02-16] MEDS: NOREPINEPHRINE 8 MG/250ML KIT 250 ML IV SCH (04:37)
[2021-02-16] MEDS: LACTULOSE 10g/15ml SOLN PR SCH ×3 (06:00→12:00)
[2021-02-16 06:37] LABS: Albumin 1.3 g/dL (3.4-5.0); Potassium 5.1 mmol/L (3.5-5.1)
[2021-02-16 06:39] LABS: Hemoglobin 7.9 g/dL (13.5-17.5); Mean Corpuscular Volume 107.8 fL (80.0-100.0); White Blood Cell 8.6 10^3/uL (4.4-10.8)
[2021-02-16 06:40] LABS: BUN/Creatinine Ratio 7.3; Bilirubin, Total 9.6 mg/dL (0.2-1.0); Total Protein 4.4 g/dL (6.4-8.2)
[2021-02-16 06:41] LABS: Hematocrit 25.9 % (41.0-53.0); Mean Corpuscular Hemoglobin 32.7 pg (28.0-32.0); Mean Corpuscular Hgb Conc. 30.3 g/dL (32.0-36.0)
[2021-02-16 06:48] LABS: Red Cell Distribution Width 22.8 % (11.8-14.3)
[2021-02-16 06:53] LABS: Basophils % (manual) 0 (0.0-2.0); Blast Cells 0; Promyelocytes % 0; Reactive Lymphocytes 0
[2021-02-16] MEDS ORDERED: DEXTROSE 50% SYRINGE 50 ML IV ONE (06:56)
[2021-02-16] MEDS: CLINDAMYCIN 300MG IV 50 ML IV SCH ×2 (07:11→14:00)
[2021-02-16] MEDS ORDERED: DEXTROSE (50%) 50ML SYRG IV ONE (07:15)
[2021-02-16] MEDS: OCTREOTIDE ACETATE 500 MCG in SODIUM CHL 0.9% 99 ML IV SCH (07:30)
[2021-02-16] MEDS ORDERED: SODIUM BICARBONATE 8.4 % INJ 50ML VIAL IV ONE (07:30)
[2021-02-16] MEDS ORDERED: SODIUM BICARBONATE 50ML VIAL 150 ML in D5W 5% 1,000 ML IV SCH (07:30)
[2021-02-16] MEDS: cefTRIAXone 1GM/50ML D5W 50 ML IV SCH (09:00)
[2021-02-16] MEDS ORDERED: NOREPINEPHRINE BITARTRATE 16 MG in SODIUM CHL 0.9% 234 ML IV SCH (09:30)
[2021-02-16] MEDS: PHENYLEPHRINE INJ 40 MG in SODIUM CHL 0.9% 246 ML IV SCH ×2 (09:41→15:17)
[2021-02-16] MEDS: FOLIC ACID 1 MG in D5W 5% 50 ML INJ SCH (09:52)
[2021-02-16] MEDS: THIAMINE 100mg/ml INJ (200mg/2ml VIAL) IV SCH (10:00)
[2021-02-16] MEDS: PANTOPRAZOLE 40 MG/10 ML VIAL INJ IV SCH (10:00)
[2021-02-16] MEDS ORDERED: EPINEPHrine HCL 250 ML IV ONE (11:29)
[2021-02-16] MEDS ORDERED: EPINEPHrine HCL 250 ML IV SCH (11:30)
[2021-02-16 11:48] LABS: Band Neutrophils % (manual) 30; Eosinophils % (manual) 3 (0-7); Lymphocytes % (manual) 17 (10.0-50.0); Metamyelocytes % 1; Monocytes % (manual) 4 (0-12); Myelocytes % 3
[2021-02-16] MEDS ORDERED: PIPERACILLIN-TAZOB 2.25GM 50 ML IV SCH (14:00)
[2021-02-16] MEDS ORDERED: PHENYLEPHRINE HCL 10 MG/ML VL ONE (15:04)
[2021-02-16] MEDS ORDERED: PHENYLEPHRINE IV 250 ML IV ONE (15:04)
[2021-02-16] MEDS ORDERED: PHENYLEPHRINE INJ 80 MG in SODIUM CHL 0.9% 242 ML IV SCH (15:45)
== END 2021-02-16 19:30 | DRG 720 ==
LOC: ER 19:15 → EDBD 19:15 → TELE 02-15 01:47 → ICU WEST 02-16 10:02
PROVIDERS: ADMIT Nurse Practitioner Family; ATTEND Nurse Practitioner Family
PROC: 02HV33Z Insertion of Infusion Device into Superior Vena Cava, Percutaneous Approach (ICD-10-PCS; 2021-02-14)
PROC: 5A1945Z Respiratory Ventilation, 24-96 Consecutive Hours (ICD-10-PCS; principal; 2021-02-15)
PROC: 0BH17EZ Insertion of Endotracheal Airway into Trachea, Via Natural or Artificial Opening (ICD-10-PCS; 2021-02-15)
PROC: 30233K1 Transfusion of Nonautologous Frozen Plasma into Peripheral Vein, Percutaneous Approach (ICD-10-PCS; 2021-02-15)
PROC: 30233N1 Transfusion of Nonautologous Red Blood Cells into Peripheral Vein, Percutaneous Approach (ICD-10-PCS; 2021-02-15)
PROC: 30233R1 Transfusion of Nonautologous Platelets into Peripheral Vein, Percutaneous Approach (ICD-10-PCS; 2021-02-15)
DX: A41.9 Sepsis, unspecified organism (principal); J96.00 Acute respiratory failure, unspecified whether with hypoxia or hypercapnia; K72.00 Acute and subacute hepatic failure without coma; N17.0 Acute kidney failure with tubular necrosis; J69.0 Pneumonitis due to inhalation of food and vomit; G93.41 Metabolic encephalopathy; R65.21 Severe sepsis with septic shock; K81.9 Cholecystitis, unspecified; K92.0 Hematemesis; D63.8 Anemia in other chronic diseases classified elsewhere; Z20.822 Contact with and (suspected) exposure to COVID-19; C25.9 Malignant neoplasm of pancreas, unspecified; E88.09 Other disorders of plasma-protein metabolism, not elsewhere classified; Z66 Do not resuscitate; F32.A Depression, unspecified; M19.90 Unspecified osteoarthritis, unspecified site; K62.89 Other specified diseases of anus and rectum; L02.31 Cutaneous abscess of buttock; K75.81 Nonalcoholic steatohepatitis (NASH); M10.9 Gout, unspecified; I10 Essential (primary) hypertension; K70.9 Alcoholic liver disease, unspecified; Z85.07 Personal history of malignant neoplasm of pancreas; Z87.11 Personal history of peptic ulcer disease
CPT/HCPCS: 31500; 36415; 36430; 36556; 36600; 71045; 74176; 80053; 82140; 82805; 83605; 83690; 85007; 85014; 85018; 85025; 85027; 85362; 85379; 85384; 85610; 85730; 86141; 86850; 86900; 86901; 86920; 87040; 87070; 87077; 87186; 87205; 87426; 93005; 94003; 96365; 96375; 99291; C9113; G0378; J0171; J0330; J0696; J2250; J3490; J7060